=== PATIENT | female | born 1995 | race Caucasian/White ===

== ENCOUNTER 2019-01-02 14:59 | Emergency (ER) | payer OTHER ==
[~2019-01-02] VITALS: Ht 160 cm; Wt 53.1 kg
[2019-01-02] MEDS ORDERED: GABA300 PO (16:36)
[2019-01-02] MEDS ORDERED: CYCL10 PO (16:37)
[2019-01-02] MEDS ORDERED: METO25ER PO (16:37)
[2019-01-02] MEDS ORDERED: MIDO5 PO (16:37)
== END 2019-01-02 16:52 | disposition home or self-care (01) ==
LOC: ER 14:59
DX: N89.8 Other specified noninflammatory disorders of vagina (principal); Z88.0 Allergy status to penicillin
CPT/HCPCS: 96372; 99283-25; J0696